=== PATIENT | female | born 1965 | race Caucasian/White ===

== ENCOUNTER → 2017-01-27 | Outpatient (CLI) | payer BC ==
[2017-01-27 13:58] LABS: Anion Gap 12 mmol/L; Blood Urea Nitrogen 11 mg/dL (7-17); Calcium 9.9 mg/dL (8.4-10.2); Carbon Dioxide 21 mmol/L (22-30); Chloride 109 mmol/L (98-107); Glucose 99 mg/dL (74-99); Lithium 1.3 mmol/L; Non-African American GFR(MDRD) >60 (>60 ml/min/1.73 sqM); Potassium 3.7 mmol/L (3.5-5.1); Sodium 142 mmol/L (137-145)
[2017-01-27 14:03] LABS: CH 33.9; CHCM 31.8; HGB 13.1 gm/dL (11.4-16.0); MCH 34.1 pg (25.0-35.0); MCHC 31.9 g/dL (31.0-37.0); Macrocytosis Moderate; Mean Platelet Volume 7.7; RBC 3.83 m/uL (3.80-5.40); RDW 12.1 % (11.5-15.5); WBC 8.3 k/uL (3.8-10.6)
== END ==
LOC: LABWHC1 13:33
PROVIDERS: ATTEND Psychiatry & Neurology Psychiatry
DX: E87.8 Other disorders of electrolyte and fluid balance, not elsewhere classified (principal); F31.60 Bipolar disorder, current episode mixed, unspecified; Z79.890 Hormone replacement therapy
CPT/HCPCS: 36415; 80048; 80178; 85027

== ENCOUNTER → 2017-01-28 | Outpatient (CLI) | payer BC ==
[2017-01-28 16:24] LABS: CH 33.9; CHCM 31.3; HCT 42.7 % (34.0-46.0); HDW 2.33; HGB 13.5 gm/dL (11.4-16.0); MCH 34.3 pg (25.0-35.0); MCHC 31.6 g/dL (31.0-37.0); MCV 108.6 fL (80.0-100.0); Macrocytosis Moderate; Mean Platelet Volume 6.9; RBC 3.93 m/uL (3.80-5.40); RDW 12.1 % (11.5-15.5); WBC 8.3 k/uL (3.8-10.6)
[2017-01-28 16:29] LABS: Anion Gap 9 mmol/L; Blood Urea Nitrogen 8 mg/dL (7-17); Calcium 10.1 mg/dL (8.4-10.2); Carbon Dioxide 21 mmol/L (22-30); Chloride 111 mmol/L (98-107); Glucose 103 mg/dL (74-99); Lithium 0.6 mmol/L; Non-African American GFR(MDRD) >60 (>60 ml/min/1.73 sqM); Potassium 4.7 mmol/L (3.5-5.1); Sodium 141 mmol/L (137-145)
== END | disposition home or self-care (01) ==
LOC: LABWHC1 15:42
PROVIDERS: ATTEND Psychiatry & Neurology Psychiatry
DX: E87.8 Other disorders of electrolyte and fluid balance, not elsewhere classified (principal); F31.60 Bipolar disorder, current episode mixed, unspecified; Z79.84 Long term (current) use of oral hypoglycemic drugs
CPT/HCPCS: 36415; 80048; 80178; 85027

== ENCOUNTER → 2017-02-11 | Outpatient (CLI) | payer BC ==
[2017-02-11 14:40] LABS: CHCM 31.7; HCT 41.5 % (34.0-46.0); HDW 2.14; HGB 13.4 gm/dL (11.4-16.0); MCH 34.8 pg (25.0-35.0); MCHC 32.3 g/dL (31.0-37.0); MCV 107.6 fL (80.0-100.0); Macrocytosis Moderate; Mean Platelet Volume 6.7; RBC 3.86 m/uL (3.80-5.40); RDW 12.1 % (11.5-15.5); WBC 7.9 k/uL (3.8-10.6)
[2017-02-11 14:48] LABS: Lithium 0.8 mmol/L; Potassium 4.3 mmol/L (3.5-5.1)
== END ==
LOC: LABWHC1 13:48
PROVIDERS: ATTEND Psychiatry & Neurology Psychiatry
DX: F31.60 Bipolar disorder, current episode mixed, unspecified (principal); E87.8 Other disorders of electrolyte and fluid balance, not elsewhere classified; Z79.899 Other long term (current) drug therapy
CPT/HCPCS: 36415; 80051; 80178; 85027

== ENCOUNTER → 2017-08-10 | Outpatient (CLI) | payer BC ==
[2017-08-10 12:07] LABS: CH 32.8; CHCM 32.4; HCT 40.4 % (34.0-46.0); HGB 13.7 gm/dL (11.4-16.0); MCH 34.6 pg (25.0-35.0); MCV 101.7 fL (80.0-100.0); Mean Platelet Volume 6.9; RBC 3.97 m/uL (3.80-5.40); RDW 12.5 % (11.5-15.5); WBC 8.7 k/uL (3.8-10.6)
[2017-08-10 12:31] LABS: Anion Gap 11 mmol/L; Blood Urea Nitrogen 10 mg/dL (7-17); Carbon Dioxide 19 mmol/L (22-30); Chloride 107 mmol/L (98-107); Glucose 101 mg/dL (74-99); Lithium 0.9 mmol/L; Non-African American GFR(MDRD) >60 (>60 ml/min/1.73 sqM); Sodium 137 mmol/L (137-145)
== END | disposition home or self-care (01) ==
LOC: LABWHC1 11:33
PROVIDERS: ATTEND Psychiatry & Neurology Psychiatry
DX: F31.60 Bipolar disorder, current episode mixed, unspecified (principal); Z79.899 Other long term (current) drug therapy
CPT/HCPCS: 36415; 80048; 80178; 85027

== ENCOUNTER → 2017-08-12 | Outpatient (CLI) | payer BC ==
[2017-08-12 20:30] LABS: Hemoglobin A1C 4.9 % (4.2-6.1)
== END | disposition home or self-care (01) ==
LOC: LABWHC1 16:19
PROVIDERS: ATTEND Psychiatry & Neurology Psychiatry
DX: D64.9 Anemia, unspecified (principal); Z79.899 Other long term (current) drug therapy
CPT/HCPCS: 36415; 82607; 82746; 83036

== ENCOUNTER → 2017-09-14 | Outpatient (CLI) | payer BC ==
[2017-09-14 15:36] LABS: ALT 46 U/L (9-52); Anion Gap 15 mmol/L; Blood Urea Nitrogen 10 mg/dL (7-17); CH 33.7; Calcium 10.7 mg/dL (8.4-10.2); Carbon Dioxide 21 mmol/L (22-30); Chloride 107 mmol/L (98-107); Glucose 99 mg/dL (74-99); HCT 40.7 % (34.0-46.0); HDW 2.24; HGB 12.7 gm/dL (11.4-16.0); Lithium <0.2 mmol/L; MCH 32.9 pg (25.0-35.0); MCHC 31.2 g/dL (31.0-37.0); MCV 105.6 fL (80.0-100.0); Macrocytosis Slight; Mean Platelet Volume 6.8; Non-African American GFR(MDRD) >60 (>60 ml/min/1.73 sqM); Potassium 4.4 mmol/L (3.5-5.1); RBC 3.85 m/uL (3.80-5.40); RDW 11.9 % (11.5-15.5); Sodium 143 mmol/L (137-145); WBC 9.8 k/uL (3.8-10.6)
== END | disposition home or self-care (01) ==
LOC: LABWHC1 14:45
PROVIDERS: ATTEND Psychiatry & Neurology Psychiatry
DX: F31.60 Bipolar disorder, current episode mixed, unspecified (principal); Z79.899 Other long term (current) drug therapy
CPT/HCPCS: 36415; 80048; 80178; 84460; 85027

== ENCOUNTER 2017-09-30 21:27 | Emergency (ER) | payer BC ==
--- NOTE | 2017-09-30 21:58 | ED ---
General Adult HPI <Shane Vu - Last Filed: 10/01/17 16:08> - General Source: patient, family, EMS, RN notes reviewed, old records reviewed Mode of arrival: EMS Limitations: altered mental status <Winston Castillo - Last Filed: 10/01/17 22:15> - General Chief complaint: Psychiatric Symptoms Stated complaint: Mental Health Time Seen by Provider: 09/30/17 21:31 - History of Present Illness Initial comments: This is a 52-year-old female to the ER for evaluation today. Patient comes in under petition for psychiatric evaluation and treatment. Patient is known history of psychiatric disease, positive had patient petition secondary to danger to family himself. Patient similar to this hospital, coming and agitated and poor historian secondary to agitation (Winston Castillo) - Related Data Home Medications Medication Instructions Recorded Confirmed LORazepam [Ativan] 1 - 2 mg PO HS PRN 09/08/17 09/30/17 Citalopram Hydrobromide [CeleXA] 20 mg PO DAILY 09/30/17 09/30/17 [place] Carbonate 300 mg PO BID 09/30/17 09/30/17 QUEtiapine [SEROquel] 50 mg PO HS 09/30/17 09/30/17 Allergies Allergy/AdvReac Type Severity Reaction Status Date / Time amoxicillin [From Augmentin] Allergy Rash/Hives Verified 09/30/17 21:40 clavulanic acid Allergy Rash/Hives Verified 09/30/17 21:40 [From Augmentin] erythromycin base Allergy Unknown Verified 09/30/17 21:40 moxifloxacin [From Avelox] Allergy Rash/Hives Verified 09/30/17 21:40 Sulfa (Sulfonamide Allergy Rash/Hives Verified 09/30/17 21:40 Antibiotics) doxycycline AdvReac RESPIRATORY Verified 09/30/17 21:40 COMPLICATIONS SULPATRIM Allergy Rash/Hives Uncoded 09/30/17 21:37 Review of Systems ROS Other: All systems not noted in ROS Statement are negative. <HoraceShane - Last Filed: 10/01/17 16:08> ROS Other: All systems not noted in ROS Statement are negative. <Winston Castillo - Last Filed: 10/01/17 22:15> ROS Statement: Those systems with pertinent positive or pertinent negative responses have been documented in the HPI. Past Medical History Past Medical History: GERD/Reflux, GI Bleed, Pneumonia Additional Past Medical History / Comment(s): Insomnia, bronchitis, IBS, gastric ulcers, upper and lower GI bleeds. History of Any Multi-Drug Resistant Organisms: None Reported Past Surgical History: Breast Surgery, Orthopedic Surgery, Tonsillectomy Additional Past Surgical History / Comment(s): EGD x2, laparoscopy for R ovarian cystectomy, L ankle tendon sx, bilateral myringotomy/tubes, bilateral breast implants. Past Anesthesia/Blood Transfusion Reactions: Motion Sickness, Postoperative Nausea & Vomiting (PONV) Past Psychological History: Bipolar, Depression Smoking Status: Current every day smoker Past Alcohol Use History: None Reported Past Drug Use History: None Reported - Past Family History Mother Family Medical History: Musculoskeletal Disorder Additional Family Medical History / Comment(s): Pt states mother has mental health problems and is a sociopath. Father Family Medical History: Cancer Additional Family Medical History / Comment(s): Father from kidney cancer. <Winston Castillo - Last Filed: 10/01/17 22:15> General Exam Limitations: altered mental status General appearance: alert, in no apparent distress, anxious Head exam: Present: atraumatic, normocephalic, normal inspection Eye exam: Present: normal appearance, PERRL, EOMI. Absent: scleral icterus, conjunctival injection, periorbital swelling ENT exam: Present: normal exam, mucous membranes moist Neck exam: Present: normal inspection. Absent: tenderness, meningismus, lymphadenopathy Respiratory exam: Present: normal lung sounds bilaterally. Absent: respiratory distress, wheezes, rales, rhonchi, stridor Cardiovascular Exam: Present: regular rate, normal rhythm, normal heart sounds. Absent: systolic murmur, diastolic murmur, rubs, gallop, clicks GI/Abdominal exam: Present: soft, normal bowel sounds. Absent: distended, tenderness, guarding, rebound, rigid Extremities exam: Present: normal inspection, full ROM, normal capillary refill. Absent: tenderness, pedal edema, joint swelling, calf tenderness Back exam: Present: normal inspection Neurological exam: Present: alert, oriented X3, CN II-XII intact Psychiatric exam: Present: normal affect, normal mood Skin exam: Present: warm, dry, intact, normal color. Absent: rash <Winston Castillo - Last Filed: 10/01/17 22:15> Course <Shane Vu - Last Filed: 10/01/17 16:08> <Winston Castillo - Last Filed: 10/01/17 22:15> Vital Signs 09/30/17 10/01/17 10/01/17 21:36 00:02 06:49 Temperature 97.5 F L 98.0 F 97.6 F Pulse Rate 78 80 72 Respiratory 20 20 18 Rate Blood Pressure 120/78 107/68 163/83 O2 Sat by Pulse 96 99 98 Oximetry 10/01/17 10/01/17 18:13 22:03 Temperature 98.1 F 97.9 F Pulse Rate 75 80 Respiratory 16 16 Rate Blood Pressure 135/66 137/69 O2 Sat by Pulse 99 99 Oximetry - Reevaluation(s) Reevaluation #1: 09/30/17 21:57 Patient is medically clear for psychiatric evaluation (Winston Castillo) Reevaluation #2: 10/01/17 16:08 The patient did require sedation and she was becoming agitated. Placement is still pending at this time. (Shane Vu) Procedures - Restraint - Face to Face Restraint Occurrence 1 Patient's Immediate Situation: Endangers self safety, Endangers others' safety, Endangers staff safety, Violent behavior Patient's Reaction to the Intervention: Uncooperative, Angry, Depressed Patient's Medical & Behavioral Condition: Alert, Agitated, Paranoid, Manic Need to Continue or Terminate Restraint or Seclusion: Continue Face to Face Eval of Restraint Date: 09/30/17 Face to Face Eval of Restraint Time: 23:06 <Winston Castillo - Last Filed: 10/01/17 22:15> Medical Decision Making - Lab Data Result diagrams: 09/30/17 22:38 09/30/17 22:38 <Shane Vu - Last Filed: 10/01/17 16:08> - Lab Data Result diagrams: 09/30/17 22:38 09/30/17 22:38 <Winston Castillo - Last Filed: 10/01/17 22:15> - Medical Decision Making 52 female to ER for evaluation. Patient is ER for evaluation regarding psychiatric disease, patient transferred for inpatient psychiatric evaluation and treatment (Winston Castillo) - Lab Data Lab Results 09/30/17 09/30/17 09/30/17 Range/Units 21:50 21:50 22:38 WBC (3.8-10.6) k/uL RBC (3.80-5.40) m/uL Hgb (11.4-16.0) gm/dL Hct (34.0-46.0) % MCV (80.0-100.0) fL MCH (25.0-35.0) pg MCHC (31.0-37.0) g/dL RDW (11.5-15.5) % Plt Count (150-450) k/uL Neutrophils % % Lymphocytes % % Monocytes % % Eosinophils % % Basophils % % Neutrophils # (1.3-7.7) k/uL Lymphocytes # (1.0-4.8) k/uL Monocytes # (0-1.0) k/uL Eosinophils # (0-0.7) k/uL Basophils # (0-0.2) k/uL Macrocytosis Sodium 138 (137-145) mmol/L Potassium 4.4 (3.5-5.1) mmol/L Chloride 107 (98-107) mmol/L Carbon Dioxide 25 (22-30) mmol/L Anion Gap 6 mmol/L BUN 15 (7-17) mg/dL Creatinine 1.10 H (0.52-1.04) mg/dL Est GFR (MDRD) Af Amer >60 (>60 ml/min/1.73 sqM) Est GFR (MDRD) Non-Af 52 (>60 ml/min/1.73 sqM) Glucose 76 (74-99) mg/dL Calcium 10.5 H (8.4-10.2) mg/dL Urine Color Urine Appearance (Clear) Urine pH (5.0-8.0) Ur Specific [place] (1.001-1.035) Urine Protein (Negative) Urine Glucose (UA) (Negative) Urine Ketones (Negative) Urine Blood (Negative) Urine Nitrite (Negative) Urine Bilirubin (Negative) Urine Urobilinogen (<2.0) mg/dL Ur Leukocyte Esterase (Negative) Urine HCG, Qual Not Detected (Not Detectd) Salicylates <1.0 mg/dL Urine Opiates Screen Not Detected (NotDetected) Ur Oxycodone Screen Not Detected (NotDetected) Urine Methadone Screen Not Detected (NotDetected) Ur Propoxyphene Screen Not Detected (NotDetected) Acetaminophen <10.0 ug/mL Ur Barbiturates Screen Not Detected (NotDetected) U Tricyclic Antidepress Not Detected (NotDetected) Ur Phencyclidine Scrn Not Detected (NotDetected) Ur Amphetamines Screen Not Detected (NotDetected) U Methamphetamines Scrn Not Detected (NotDetected) U Benzodiazepines Scrn Not Detected (NotDetected) [place] 2.0 H* mmol/L Urine Cocaine Screen Not Detected (NotDetected) U Marijuana (THC) Screen Not Detected (NotDetected) Serum Alcohol <10 mg/dL 09/30/17 09/30/17 10/01/17 Range/Units 22:38 22:45 04:00 WBC 12.0 H (3.8-10.6) k/uL RBC 3.85 (3.80-5.40) m/uL Hgb 12.6 (11.4-16.0) gm/dL Hct 40.1 (34.0-46.0) % MCV 104.1 H (80.0-100.0) fL MCH 32.7 (25.0-35.0) pg MCHC 31.4 (31.0-37.0) g/dL RDW 12.9 (11.5-15.5) % Plt Count 287 (150-450) k/uL Neutrophils % 77 % Lymphocytes % 16 % Monocytes % 4 % Eosinophils % 2 % Basophils % 0 % Neutrophils # 9.3 H (1.3-7.7) k/uL Lymphocytes # 2.0 (1.0-4.8) k/uL Monocytes # 0.5 (0-1.0) k/uL Eosinophils # 0.2 (0-0.7) k/uL Basophils # 0.0 (0-0.2) k/uL Macrocytosis Slight Sodium (137-145) mmol/L Potassium (3.5-5.1) mmol/L Chloride (98-107) mmol/L Carbon Dioxide (22-30) mmol/L Anion Gap mmol/L BUN (7-17) mg/dL Creatinine (0.52-1.04) mg/dL Est GFR (MDRD) Af Amer (>60 ml/min/1.73 sqM) Est GFR (MDRD) Non-Af (>60 ml/min/1.73 sqM) Glucose (74-99) mg/dL Calcium (8.4-10.2) mg/dL Urine Color Light Yellow Urine Appearance Clear (Clear) Urine pH 6.5 (5.0-8.0) Ur Specific [place] 1.011 (1.001-1.035) Urine Protein Negative (Negative) Urine Glucose (UA) Negative (Negative) Urine Ketones 2+ H (Negative) Urine Blood Negative (Negative) Urine Nitrite Negative (Negative) Urine Bilirubin Negative (Negative) Urine Urobilinogen <2.0 (<2.0) mg/dL Ur Leukocyte Esterase Negative (Negative) Urine HCG, Qual (Not Detectd) Salicylates mg/dL Urine Opiates Screen (NotDetected) Ur Oxycodone Screen (NotDetected) Urine Methadone Screen (NotDetected) Ur Propoxyphene Screen (NotDetected) Acetaminophen ug/mL Ur Barbiturates Screen (NotDetected) U Tricyclic Antidepress (NotDetected) Ur Phencyclidine Scrn (NotDetected) Ur Amphetamines Screen (NotDetected) U Methamphetamines Scrn (NotDetected) U Benzodiazepines Scrn (NotDetected) [place] 1.6 H* mmol/L Urine Cocaine Screen (NotDetected) U Marijuana (THC) Screen (NotDetected) Serum Alcohol mg/dL 10/01/17 Range/Units 18:34 WBC (3.8-10.6) k/uL RBC (3.80-5.40) m/uL Hgb (11.4-16.0) gm/dL Hct (34.0-46.0) % MCV (80.0-100.0) fL MCH (25.0-35.0) pg MCHC (31.0-37.0) g/dL RDW (11.5-15.5) % Plt Count (150-450) k/uL Neutrophils % % Lymphocytes % % Monocytes % % Eosinophils % % Basophils % % Neutrophils # (1.3-7.7) k/uL Lymphocytes # (1.0-4.8) k/uL Monocytes # (0-1.0) k/uL Eosinophils # (0-0.7) k/uL Basophils # (0-0.2) k/uL Macrocytosis Sodium (137-145) mmol/L Potassium (3.5-5.1) mmol/L Chloride (98-107) mmol/L Carbon Dioxide (22-30) mmol/L Anion Gap mmol/L BUN (7-17) mg/dL Creatinine (0.52-1.04) mg/dL Est GFR (MDRD) Af Amer (>60 ml/min/1.73 sqM) Est GFR (MDRD) Non-Af (>60 ml/min/1.73 sqM) Glucose (74-99) mg/dL Calcium (8.4-10.2) mg/dL Urine Color Urine Appearance (Clear) Urine pH (5.0-8.0) Ur Specific [place] (1.001-1.035) Urine Protein (Negative) Urine Glucose (UA) (Negative) Urine Ketones (Negative) Urine Blood (Negative) Urine Nitrite (Negative) Urine Bilirubin (Negative) Urine Urobilinogen (<2.0) mg/dL Ur Leukocyte Esterase (Negative) Urine HCG, Qual (Not Detectd) Salicylates mg/dL Urine Opiates Screen (NotDetected) Ur Oxycodone Screen (NotDetected) Urine Methadone Screen (NotDetected) Ur Propoxyphene Screen (NotDetected) Acetaminophen ug/mL Ur Barbiturates Screen (NotDetected) U Tricyclic Antidepress (NotDetected) Ur Phencyclidine Scrn (NotDetected) Ur Amphetamines Screen (NotDetected) U Methamphetamines Scrn (NotDetected) U Benzodiazepines Scrn (NotDetected) [place] 1.2 mmol/L Urine Cocaine Screen (NotDetected) U Marijuana (THC) Screen (NotDetected) Serum Alcohol mg/dL Disposition <Shane Vu - Last Filed: 10/01/17 16:08> <Winston Castillo - Last Filed: 10/01/17 22:15> Clinical Impression: [place] toxicity, Mood disorder, Depression, Suicidal ideation, Psychosis Disposition: TRANSFER TO PSYCH HOSP/UNIT Condition: Fair Referrals: None,Stated [Primary Care Provider] - 1-2 days
[2017-09-30] MEDS ORDERED: ACETAMINOPHEN TAB 325 MG TAB PO STA (22:20)
[2017-09-30] MEDS ORDERED: ZIPRASIDONE 20 MG VIAL IM STA (22:45)
[2017-09-30 22:48] LABS: Appearance,Urine Clear (Clear); Bilirubin,Urine Negative (Negative); Glucose,Urine (UA) Negative (Negative); Ketones,Urine 2+ (Negative); Leukocyte Esterase,Urine Negative (Negative); Nitrite,Urine Negative (Negative); PH, Urine 6.5 (5.0-8.0); Protein,Urine Negative (Negative); Specific Gravity,Urine 1.011 (1.001-1.035); UA Billing (MACRO vs. MICRO) CHEM; Urobilinogen,Urine <2.0 mg/dL (<2.0)
[2017-09-30 23:06] LABS: Basophils % (A) 0 %; CH 32.4; CHCM 31.2; Eosinophils # (A) 0.2 k/uL (0-0.7); Eosinophils % (A) 2 %; HCT 40.1 % (34.0-46.0); HDW 2.11; HGB 12.6 gm/dL (11.4-16.0); Luc # (Auto) 0.11; Luc % (Auto) 1; Lymphocytes % (A) 16 %; MCH 32.7 pg (25.0-35.0); MCHC 31.4 g/dL (31.0-37.0); MCV 104.1 fL (80.0-100.0); Macrocytosis Slight; Mean Platelet Volume 7.7; Monocytes # (A) 0.5 k/uL (0-1.0); Monocytes % (A) 4 %; Neutrophils # (A) 9.3 k/uL (1.3-7.7); Neutrophils % (A) 77 %; RBC 3.85 m/uL (3.80-5.40); RDW 12.9 % (11.5-15.5); WBC (Perox) 12.42
[2017-09-30 23:08] LABS: Acetaminophen <10.0 ug/mL; Alcohol <10 mg/dL; Anion Gap 6 mmol/L; Blood Urea Nitrogen 15 mg/dL (7-17); Calcium 10.5 mg/dL (8.4-10.2); Carbon Dioxide 25 mmol/L (22-30); Chloride 107 mmol/L (98-107); Glucose 76 mg/dL (74-99); Non-African American GFR(MDRD) 52 (>60 ml/min/1.73 sqM); Potassium 4.4 mmol/L (3.5-5.1); Salicylate <1.0 mg/dL; Sodium 138 mmol/L (137-145)
[2017-10-01] MEDS ORDERED: ACETAMINOPHEN TAB 325 MG TAB PO STA ×2 (09:10→14:24)
[2017-10-01] MEDS ORDERED: NICOTINE POLACRILEX 2 MG GUM BUCCAL PRN (14:22)
[2017-10-01] MEDS ORDERED: ZIPRASIDONE 20 MG VIAL IM STA (14:24)
[2017-10-01 18:14] VITALS: RESP 16
[2017-10-01 22:05] VITALS: BP 137/69; PULSE 80; TEMP 97.9
== END 2017-10-01 22:06 ==
LOC: EC 21:27
DX: T43.591A Poisoning by other antipsychotics and neuroleptics, accidental (unintentional), initial encounter (principal); F29 Unspecified psychosis not due to a substance or known physiological condition; F31.9 Bipolar disorder, unspecified; K21.9 Gastro-esophageal reflux disease without esophagitis; K58.9 Irritable bowel syndrome, unspecified; F17.200 Nicotine dependence, unspecified, uncomplicated; Z79.899 Other long term (current) drug therapy; Z88.0 Allergy status to penicillin; Z88.1 Allergy status to other antibiotic agents; Z88.2 Allergy status to sulfonamides
CPT/HCPCS: 82075; 36415 ×2; 80048; 80178 ×2; 85025; 81003; 81025; 80306; 83520 ×2; 80320; 99285; 96372 ×2; J3486 ×2

== ENCOUNTER → 2018-04-08 | Outpatient (CLI) | payer BC ==
[2018-04-08 15:15] LABS: Basophils % (A) 0 %; Eosinophils # (A) 0.5 k/uL (0-0.7); Eosinophils % (A) 4 %; HCT 45.8 % (34.0-46.0); HGB 14.7 gm/dL (11.4-16.0); Lymphocytes # (A) 3.5 k/uL (1.0-4.8); Lymphocytes % (A) 31 %; MCHC 32.2 g/dL (31.0-37.0); MCV 102.6 fL (80.0-100.0); Macrocytosis Slight; Mean Platelet Volume 6.4; Monocytes # (A) 0.4 k/uL (0-1.0); Monocytes % (A) 4 %; Neutrophils # (A) 6.5 k/uL (1.3-7.7); Neutrophils % (A) 59 %; Platelet Count 398 k/uL (150-450); RBC 4.47 m/uL (3.80-5.40); RDW 12.8 % (11.5-15.5); WBC 11.1 k/uL (3.8-10.6)
[2018-04-08 15:36] LABS: Anion Gap 13 mmol/L; Blood Urea Nitrogen 12 mg/dL (7-17); Carbon Dioxide 23 mmol/L (22-30); Chloride 104 mmol/L (98-107); Potassium 4.2 mmol/L (3.5-5.1); Sodium 140 mmol/L (137-145)
[2018-04-08 16:09] LABS: Lithium 0.9 mmol/L
== END | disposition home or self-care (01) ==
LOC: LABWHC1 14:48
DX: Z51.81 Encounter for therapeutic drug level monitoring (principal); Z79.899 Other long term (current) drug therapy
CPT/HCPCS: 36415; 80051; 80178; 82565; 84443; 84520; 85025

== ENCOUNTER 2019-04-01 11:12 | Emergency (ER) | payer BC, OTHER ==
[2019-04-01 11:20] VITALS: RESP 18; TEMP 98.4
[2019-04-01] MEDS ORDERED: SODIUM CHLORIDE 0.9% 500 ML 500 ML IV STA (12:02)
--- NOTE | 2019-04-01 12:05 | ED ---
General Adult HPI - General Chief complaint: Recheck/Abnormal Lab/Rx Stated complaint: fatigue/shaky Time Seen by Provider: 04/01/19 11:15 Source: patient, RN notes reviewed Mode of arrival: ambulatory Limitations: no limitations - History of Present Illness Initial comments: This is a 54-year-old female who presents to the ER complaining of generalized tooth 6 days. Patient states she is very tired she has a frontal headache she mildly nauseated and just feels that she has lack of energy. Patient denies any fever or chills. Patient denies a cough. Patient denies abdominal pain patient says nausea vomiting but does states she has had diarrhea over that period time. Patient does take lithium and thinks maybe it's from her having a high lithium level. Patient denies any leg swelling or calf tenderness. Patient denies any chest pain or difficulty breathing or shortness of breath. - Related Data Home Medications Medication Instructions Recorded Confirmed LORazepam [Ativan] 1 - 2 mg PO HS PRN 09/08/17 09/30/17 Citalopram Hydrobromide [CeleXA] 20 mg PO DAILY 09/30/17 09/30/17 [place] Carbonate 300 mg PO BID 09/30/17 09/30/17 QUEtiapine [SEROquel] 50 mg PO HS 09/30/17 09/30/17 Allergies Allergy/AdvReac Type Severity Reaction Status Date / Time amoxicillin [From Augmentin] Allergy Rash/Hives Verified 09/30/17 21:40 clavulanic acid Allergy Rash/Hives Verified 09/30/17 21:40 [From Augmentin] erythromycin base Allergy Unknown Verified 09/30/17 21:40 moxifloxacin [From Avelox] Allergy Rash/Hives Verified 09/30/17 21:40 Sulfa (Sulfonamide Allergy Rash/Hives Verified 09/30/17 21:40 Antibiotics) doxycycline AdvReac RESPIRATORY Verified 09/30/17 21:40 COMPLICATIONS SULPATRIM Allergy Rash/Hives Uncoded 09/30/17 21:37 Review of Systems ROS Statement: Those systems with pertinent positive or pertinent negative responses have been documented in the HPI. ROS Other: All systems not noted in ROS Statement are negative. Past Medical History Past Medical History: GERD/Reflux, GI Bleed, Pneumonia Additional Past Medical History / Comment(s): Insomnia, bronchitis, IBS, gastric ulcers, upper and lower GI bleeds. History of Any Multi-Drug Resistant Organisms: None Reported Past Surgical History: Breast Surgery, Ear Surgery, Orthopedic Surgery, Tonsillectomy Additional Past Surgical History / Comment(s): EGD x2, laparoscopy for R ovarian cystectomy, L ankle tendon sx, bilateral myringotomy/tubes, bilateral breast implants. Past Anesthesia/Blood Transfusion Reactions: Motion Sickness, Postoperative Nausea & Vomiting (PONV) Past Psychological History: Bipolar, Depression Smoking Status: Current every day smoker Past Alcohol Use History: None Reported Past Drug Use History: None Reported - Past Family History Mother Family Medical History: Musculoskeletal Disorder Additional Family Medical History / Comment(s): Pt states mother has mental health problems and is a sociopath. Father Family Medical History: Cancer Additional Family Medical History / Comment(s): Father from kidney cancer. General Exam - General Exam Comments Initial Comments: GENERAL: Patient is well-developed and well-nourished. Patient is nontoxic and well- hydrated and is in mild distress. ENT: Neck is soft and supple. No significant lymphadenopathy is noted. Oropharynx is clear. Moist mucous membranes. Neck has full range of motion without eliciting any pain. EYES: The sclera were anicteric and conjunctiva were pink and moist. Extraocular movements were intact and pupils were equal round and reactive to light. Eyelids were unremarkable. PULMONARY: Unlabored respirations. Good breath sounds bilaterally. No audible rales rhonchi or wheezing was noted. CARDIOVASCULAR: There is a regular rate and rhythm without any murmurs gallops or rubs. ABDOMEN: Soft and nontender with normal bowel sounds. SKIN: Skin is clear with no lesions or rashes and otherwise unremarkable. NEUROLOGIC: Patient is alert and oriented x3. Cranial nerves II through XII are grossly intact. Motor and sensory are also intact. Normal speech, volume and content. Symmetrical smile. MUSCULOSKELETAL: Normal extremities with adequate strength and full range of motion. No lower extremity swelling or edema. No calf tenderness. LYMPHATICS: No significant lymphadenopathy is noted PSYCHIATRIC: Normal psychiatric evaluation. Limitations: no limitations Course Vital Signs 04/01/19 11:15 Temperature 98.4 F Pulse Rate 57 L Respiratory 18 Rate Blood Pressure 137/74 O2 Sat by Pulse 100 Oximetry Medical Decision Making - Medical Decision Making EKG shows a marked sinus bradycardia at 45 bpm [place] interval 202 QRS is 98 QT interval 480 QTC is 4:15. I will back and reevaluate the patient she was in no distress. I told the patient her lithium level was 1.1 she stated that was much too high for anytime he gets above 0.8 she does have symptoms similar to symptoms she has today. Patient states she'll follow-up with her primary medical care doctor to have a repeat level drawn Wednesday and she will not take any lithium today and tomorrow. - Lab Data Result diagrams: 04/01/19 12:30 04/01/19 12:30 Lab Results 04/01/19 04/01/19 04/01/19 Range/Units 12:30 12:30 12:30 WBC 7.2 (3.8-10.6) k/uL RBC 4.30 (3.80-5.40) m/uL Hgb 14.0 (11.4-16.0) gm/dL Hct 43.5 (34.0-46.0) % MCV 101.1 H (80.0-100.0) fL MCH 32.7 (25.0-35.0) pg MCHC 32.3 (31.0-37.0) g/dL RDW 11.7 (11.5-15.5) % Plt Count 278 (150-450) k/uL Neutrophils % 58 % Lymphocytes % 29 % Monocytes % 4 % Eosinophils % 7 % Basophils % 0 % Neutrophils # 4.2 (1.3-7.7) k/uL Lymphocytes # 2.0 (1.0-4.8) k/uL Monocytes # 0.3 (0-1.0) k/uL Eosinophils # 0.5 (0-0.7) k/uL Basophils # 0.0 (0-0.2) k/uL PT 9.9 (9.0-12.0) sec INR 0.9 (<1.2) APTT 22.6 (22.0-30.0) sec Sodium 139 (137-145) mmol/L Potassium 4.0 (3.5-5.1) mmol/L Chloride 107 (98-107) mmol/L Carbon Dioxide 24 (22-30) mmol/L Anion Gap 8 mmol/L BUN 13 (7-17) mg/dL Creatinine 0.89 (0.52-1.04) mg/dL Est GFR (CKD-EPI)AfAm 86 (>60 ml/min/1.73 sqM) Est GFR (CKD-EPI)NonAf 74 (>60 ml/min/1.73 sqM) Glucose 92 (74-99) mg/dL Plasma Lactic Acid Sven (0.7-2.0) mmol/L Calcium 10.1 (8.4-10.2) mg/dL Magnesium 2.0 (1.6-2.3) mg/dL Total Bilirubin 0.6 (0.2-1.3) mg/dL AST 25 (14-36) U/L ALT 28 (9-52) U/L Alkaline Phosphatase 62 (38-126) U/L Troponin I (0.000-0.034) ng/mL Total Protein 7.4 (6.3-8.2) g/dL Albumin 4.7 (3.5-5.0) g/dL TSH 2.010 (0.465-4.680) mIU/L Free T4 0.77 L (0.78-2.19) ng/dL Urine Color Urine Appearance (Clear) Urine pH (5.0-8.0) Ur Specific [place] (1.001-1.035) Urine Protein (Negative) Urine Glucose (UA) (Negative) Urine Ketones (Negative) Urine Blood (Negative) Urine Nitrite (Negative) Urine Bilirubin (Negative) Urine Urobilinogen (<2.0) mg/dL Ur Leukocyte Esterase (Negative) [place] 1.1 mmol/L 04/01/19 04/01/19 04/01/19 Range/Units 12:30 12:30 12:50 WBC (3.8-10.6) k/uL RBC (3.80-5.40) m/uL Hgb (11.4-16.0) gm/dL Hct (34.0-46.0) % MCV (80.0-100.0) fL MCH (25.0-35.0) pg MCHC (31.0-37.0) g/dL RDW (11.5-15.5) % Plt Count (150-450) k/uL Neutrophils % % Lymphocytes % % Monocytes % % Eosinophils % % Basophils % % Neutrophils # (1.3-7.7) k/uL Lymphocytes # (1.0-4.8) k/uL Monocytes # (0-1.0) k/uL Eosinophils # (0-0.7) k/uL Basophils # (0-0.2) k/uL PT (9.0-12.0) sec INR (<1.2) APTT (22.0-30.0) sec Sodium (137-145) mmol/L Potassium (3.5-5.1) mmol/L Chloride (98-107) mmol/L Carbon Dioxide (22-30) mmol/L Anion Gap mmol/L BUN (7-17) mg/dL Creatinine (0.52-1.04) mg/dL Est GFR (CKD-EPI)AfAm (>60 ml/min/1.73 sqM) Est GFR (CKD-EPI)NonAf (>60 ml/min/1.73 sqM) Glucose (74-99) mg/dL Plasma Lactic Acid Sven 1.0 (0.7-2.0) mmol/L Calcium (8.4-10.2) mg/dL Magnesium (1.6-2.3) mg/dL Total Bilirubin (0.2-1.3) mg/dL AST (14-36) U/L ALT (9-52) U/L Alkaline Phosphatase (38-126) U/L Troponin I <0.012 (0.000-0.034) ng/mL Total Protein (6.3-8.2) g/dL Albumin (3.5-5.0) g/dL TSH (0.465-4.680) mIU/L Free T4 (0.78-2.19) ng/dL Urine Color Colorless Urine Appearance Clear (Clear) Urine pH 6.5 (5.0-8.0) Ur Specific [place] 1.003 (1.001-1.035) Urine Protein Negative (Negative) Urine Glucose (UA) Negative (Negative) Urine Ketones Negative (Negative) Urine Blood Negative (Negative) Urine Nitrite Negative (Negative) Urine Bilirubin Negative (Negative) Urine Urobilinogen <2.0 (<2.0) mg/dL Ur Leukocyte Esterase Negative (Negative) [place] mmol/L Disposition Clinical Impression: Diarrhea, Weakness, Shaky Disposition: HOME SELF-CARE Condition: Good Instructions (If sedation given, give patient instructions): [place] Toxicity (ED), Acute Diarrhea (ED) Is patient prescribed a controlled substance at d/c from ED?: No Referrals: Arnaud Hernandez MD [Primary Care Provider] - 1-2 days Time of Disposition: 13:37
[2019-04-01] MEDS ORDERED: ASPIRIN-ACET-CAFF 250-250-65MG 1 EACH TAB PO STA (12:19)
[2019-04-01 12:43] LABS: Basophils % (A) 0 %; Eosinophils # (A) 0.5 k/uL (0-0.7); Eosinophils % (A) 7 %; HCT 43.5 % (34.0-46.0); Lymphocytes % (A) 29 %; MCH 32.7 pg (25.0-35.0); MCHC 32.3 g/dL (31.0-37.0); MCV 101.1 fL (80.0-100.0); Mean Platelet Volume 6.9; Monocytes # (A) 0.3 k/uL (0-1.0); Monocytes % (A) 4 %; Neutrophils # (A) 4.2 k/uL (1.3-7.7); Neutrophils % (A) 58 %; Platelet Count 278 k/uL (150-450); RDW 11.7 % (11.5-15.5); WBC 7.2 k/uL (3.8-10.6)
[2019-04-01 12:46] LABS: Appearance,Urine Clear (Clear); Bilirubin,Urine Negative (Negative); Blood,Urine Negative (Negative); Color,Urine Colorless; Glucose,Urine (UA) Negative (Negative); Ketones,Urine Negative (Negative); Leukocyte Esterase,Urine Negative (Negative); Nitrite,Urine Negative (Negative); PH, Urine 6.5 (5.0-8.0); Protein,Urine Negative (Negative); Specific Gravity,Urine 1.003 (1.001-1.035); Urobilinogen,Urine <2.0 mg/dL (<2.0)
[2019-04-01 12:53] LABS: Albumin 4.7 g/dL (3.5-5.0); Calcium 10.1 mg/dL (8.4-10.2); Lithium 1.1 mmol/L; Total Bilirubin 0.6 mg/dL (0.2-1.3); Total Protein 7.4 g/dL (6.3-8.2)
[2019-04-01 12:56] LABS: INR 0.9 (<1.2); Partial Thromboplastin Time 22.6 sec (22.0-30.0); Prothrombin Time 9.9 sec (9.0-12.0)
[2019-04-01 13:10] LABS: T4, Free (Free Thyroxine) 0.77 ng/dL (0.78-2.19)
--- NOTE | 2019-04-01 13:13 | XR ---
EXAMINATION TYPE: XR chest 2V DATE OF EXAM: 04/01/2019 HISTORY: Weakness. REFERENCE: NONE. FINDINGS: The lungs are clear. Pleural space are clear. The heart is not enlarged. IMPRESSION: NO ACUTE INTRATHORACIC ABNORMALITY.
[2019-04-01 14:18] VITALS: BP 124/70; PULSE 49
== END 2019-04-01 14:18 | disposition home or self-care (01) ==
LOC: EC 11:12
DX: R53.1 Weakness (principal); R25.1 Tremor, unspecified; R19.7 Diarrhea, unspecified; R00.1 Bradycardia, unspecified; F31.9 Bipolar disorder, unspecified; F17.200 Nicotine dependence, unspecified, uncomplicated; Z79.899 Other long term (current) drug therapy; Z88.0 Allergy status to penicillin; Z88.1 Allergy status to other antibiotic agents; Z88.2 Allergy status to sulfonamides
CPT/HCPCS: 36415; 71046; 80053; 80178; 81003; 83605; 83735; 84439; 84443; 84484; 85025; 85610; 85730; 93005; 96360; 96361; 99284

== ENCOUNTER → 2019-04-19 | Outpatient (CLI) | payer BC, OTHER ==
[2019-04-20 00:45] LABS: Anion Gap 9.4 mmol/L (4.00-12.00); Carbon Dioxide 22.6 mmol/L (21.6-31.8); Lithium 0.6 mmol/L (1.0-1.2)
== END | disposition home or self-care (01) ==
LOC: LABWHC1 16:19
DX: F31.2 Bipolar disorder, current episode manic severe with psychotic features (principal); Z79.899 Other long term (current) drug therapy
CPT/HCPCS: 36415; 80051; 80178; 82565; 84520

== ENCOUNTER 2019-08-24 15:22 | Emergency (ER) | payer BC, OTHER ==
[2019-08-24 16:10] LABS: Basophils % (A) 1 %; Eosinophils # (A) 0.4 k/uL (0-0.7); Eosinophils % (A) 5 %; HCT 40.6 % (34.0-46.0); Lymphocytes # (A) 2.8 k/uL (1.0-4.8); Lymphocytes % (A) 37 %; MCH 33.6 pg (25.0-35.0); Macrocytosis Slight; Mean Platelet Volume 6.7; Monocytes # (A) 0.3 k/uL (0-1.0); Monocytes % (A) 4 %; Neutrophils # (A) 3.9 k/uL (1.3-7.7); Neutrophils % (A) 51 %; Platelet Count 271 k/uL (150-450); RBC 3.87 m/uL (3.80-5.40); RDW 11.9 % (11.5-15.5); WBC 7.6 k/uL (3.8-10.6)
[2019-08-24 16:17] LABS: INR 0.9 (<1.2)
[2019-08-24 16:18] LABS: Lactic Acid, Venous 1.2 mmol/L (0.7-2.0); Prothrombin Time 9.7 sec (9.0-12.0)
[2019-08-24 16:19] LABS: ALT 28 U/L (9-52); AST 28 U/L (14-36); African American GFR (CKD) >90 (>60 ml/min/1.73 sqM); Albumin 4.4 g/dL (3.5-5.0); Alkaline Phosphatase 50 U/L (38-126); Anion Gap 9 mmol/L; Blood Urea Nitrogen 10 mg/dL (7-17); Calcium 9.9 mg/dL (8.4-10.2); Carbon Dioxide 23 mmol/L (22-30); Chloride 108 mmol/L (98-107); Glucose 86 mg/dL (74-99); Lithium 0.8 mmol/L; Potassium 3.9 mmol/L (3.5-5.1); Sodium 140 mmol/L (137-145); Total Bilirubin 0.3 mg/dL (0.2-1.3); Total Protein 7.1 g/dL (6.3-8.2)
--- NOTE | 2019-08-24 17:23 | ED ---
General Adult HPI - General Chief complaint: Recheck/Abnormal Lab/Rx Stated complaint: Not sleeping Time Seen by Provider: 08/24/19 15:30 Source: patient Mode of arrival: ambulatory Limitations: no limitations - History of Present Illness Initial comments: The patient is a 54-year-old female presents emergency department requesting a within level rechecked. The patient reports to a history of bipolar. States that she will frequently feel manic and occasionally this is due to her lithium level being elevated. Her psychiatrist is only check her labs twice. States she had to be hospitalized once before for elevated lithium levels. She reports to nausea and chronic diarrhea. States it is black in color. This is also chronic for her and has been previously scoped. Demonstrated that she had ulcer disease. She denies any hematochezia or constipation. No alcohol or NSAID use. Denies any recent changes in her medication. Denies any suicidal, homicidal ideations or hallucinations. The chest pain or shortness of breath. No recent infections. Denies cough, abdominal pain or changes in her bowel or bladder habits. There are no alleviating, precipitating or modifying factors - Related Data Home Medications Medication Instructions Recorded Confirmed Acetaminophen [Tylenol Extra 2,000 mg PO DAILY PRN 08/24/19 08/24/19 Strength] [place] Carbonate [[place] 900 mg PO HS 08/24/19 08/24/19 Carbonate ER] Ramelteon [Rozerem] 8 mg PO HS 08/24/19 08/24/19 traZODone HCL 100 - 200 mg PO HS 08/24/19 08/24/19 Allergies Allergy/AdvReac Type Severity Reaction Status Date / Time amoxicillin [From Augmentin] Allergy Rash/Hives Verified 08/24/19 16:16 clavulanic acid Allergy Rash/Hives Verified 08/24/19 16:16 [From Augmentin] erythromycin base Allergy Unknown Verified 08/24/19 16:16 moxifloxacin [From Avelox] Allergy Rash/Hives Verified 08/24/19 16:16 Sulfa (Sulfonamide Allergy Rash/Hives Verified 08/24/19 16:16 Antibiotics) doxycycline AdvReac RESPIRATORY Verified 08/24/19 16:16 COMPLICATIONS SULPATRIM Allergy Rash/Hives Uncoded 08/24/19 16:16 Review of Systems ROS Statement: Those systems with pertinent positive or pertinent negative responses have been documented in the HPI. ROS Other: All systems not noted in ROS Statement are negative. Past Medical History Past Medical History: GERD/Reflux, GI Bleed, Pneumonia Additional Past Medical History / Comment(s): Insomnia, bronchitis, IBS, gastric ulcers, upper and lower GI bleeds. History of Any Multi-Drug Resistant Organisms: None Reported Past Surgical History: Breast Surgery, Ear Surgery, Orthopedic Surgery, Tonsillectomy Additional Past Surgical History / Comment(s): EGD x2, laparoscopy for R ovarian cystectomy, L ankle tendon sx, bilateral myringotomy/tubes, bilateral breast implants. Past Anesthesia/Blood Transfusion Reactions: Motion Sickness, Postoperative Nausea & Vomiting (PONV) Past Psychological History: Bipolar, Depression Smoking Status: Current every day smoker Past Alcohol Use History: None Reported Past Drug Use History: None Reported - Past Family History Mother Family Medical History: Musculoskeletal Disorder Additional Family Medical History / Comment(s): Pt states mother has mental health problems and is a sociopath. Father Family Medical History: Cancer Additional Family Medical History / Comment(s): Father from kidney cancer. General Exam Limitations: no limitations General appearance: alert, in no apparent distress Head exam: Present: atraumatic, normocephalic, normal inspection Eye exam: Present: normal appearance, PERRL, EOMI. Absent: scleral icterus, conjunctival injection, periorbital swelling ENT exam: Present: normal exam, mucous membranes moist Neck exam: Present: normal inspection. Absent: tenderness, meningismus, lymphadenopathy Respiratory exam: Present: normal lung sounds bilaterally. Absent: respiratory distress, wheezes, rales, rhonchi, stridor Cardiovascular Exam: Present: regular rate, normal rhythm, normal heart sounds. Absent: systolic murmur, diastolic murmur, rubs, gallop, clicks GI/Abdominal exam: Present: soft, normal bowel sounds. Absent: distended, tenderness, guarding, rebound, rigid Extremities exam: Present: normal inspection, full ROM, normal capillary refill. Absent: tenderness, pedal edema, joint swelling, calf tenderness Back exam: Present: normal inspection Neurological exam: Present: alert, oriented X3, CN II-XII intact Psychiatric exam: Present: normal affect, normal mood Skin exam: Present: warm, dry, intact, normal color. Absent: rash Course Vital Signs 08/24/19 08/24/19 15:27 17:31 Temperature 98.8 F 98.2 F Pulse Rate 75 81 Respiratory 20 16 Rate Blood Pressure 130/67 129/77 O2 Sat by Pulse 97 98 Oximetry Medical Decision Making - Medical Decision Making Upon arrival the patient was placed into room 29. A thorough history of physical exam was performed. I did perform a rectal exam is a patient is reporting dark stools. Fecal cultures come back negative. Recommend laboratory studies. MCV is 105, chloride 108. Fecal occult is negative. [place] level 0.8. I discussed these results with the patient. I did discuss further evaluation for the patient's symptoms however she refuses. She states that she was only concerned about an elevated lithium level. The patient will be d ischarged home at this time. I did inform her that she should follow up with the GI doctor for her chronic diarrhea. I did provide her with information for Dr. Colunga's office. The patient is a new or worsening symptoms she should return to the department. The patient was then discharged home in stable condition. - Lab Data Result diagrams: 08/24/19 15:45 08/24/19 15:45 Lab Results 08/24/19 08/24/19 08/24/19 Range/Units 15:45 15:45 15:45 WBC 7.6 (3.8-10.6) k/uL RBC 3.87 (3.80-5.40) m/uL Hgb 13.0 (11.4-16.0) gm/dL Hct 40.6 (34.0-46.0) % MCV 105.0 H (80.0-100.0) fL MCH 33.6 (25.0-35.0) pg MCHC 32.0 (31.0-37.0) g/dL RDW 11.9 (11.5-15.5) % Plt Count 271 (150-450) k/uL Neutrophils % 51 % Lymphocytes % 37 % Monocytes % 4 % Eosinophils % 5 % Basophils % 1 % Neutrophils # 3.9 (1.3-7.7) k/uL Lymphocytes # 2.8 (1.0-4.8) k/uL Monocytes # 0.3 (0-1.0) k/uL Eosinophils # 0.4 (0-0.7) k/uL Basophils # 0.0 (0-0.2) k/uL Macrocytosis Slight PT 9.7 (9.0-12.0) sec INR 0.9 (<1.2) APTT 23.0 (22.0-30.0) sec Sodium 140 (137-145) mmol/L Potassium 3.9 (3.5-5.1) mmol/L Chloride 108 H (98-107) mmol/L Carbon Dioxide 23 (22-30) mmol/L Anion Gap 9 mmol/L BUN 10 (7-17) mg/dL Creatinine 0.76 (0.52-1.04) mg/dL Est GFR (CKD-EPI)AfAm >90 (>60 ml/min/1.73 sqM) Est GFR (CKD-EPI)NonAf >90 (>60 ml/min/1.73 sqM) Glucose 86 (74-99) mg/dL Plasma Lactic Acid Sven (0.7-2.0) mmol/L Calcium 9.9 (8.4-10.2) mg/dL Total Bilirubin 0.3 (0.2-1.3) mg/dL AST 28 (14-36) U/L ALT 28 (9-52) U/L Alkaline Phosphatase 50 (38-126) U/L Ammonia (<30) umol/L Total Protein 7.1 (6.3-8.2) g/dL Albumin 4.4 (3.5-5.0) g/dL TSH 1.910 (0.465-4.680) mIU/L Stool Occult Blood (Negative) [place] 0.8 mmol/L 08/24/19 08/24/19 Range/Units 15:45 15:45 WBC (3.8-10.6) k/uL RBC (3.80-5.40) m/uL Hgb (11.4-16.0) gm/dL Hct (34.0-46.0) % MCV (80.0-100.0) fL MCH (25.0-35.0) pg MCHC (31.0-37.0) g/dL RDW (11.5-15.5) % Plt Count (150-450) k/uL Neutrophils % % Lymphocytes % % Monocytes % % Eosinophils % % Basophils % % Neutrophils # (1.3-7.7) k/uL Lymphocytes # (1.0-4.8) k/uL Monocytes # (0-1.0) k/uL Eosinophils # (0-0.7) k/uL Basophils # (0-0.2) k/uL Macrocytosis PT (9.0-12.0) sec INR (<1.2) APTT (22.0-30.0) sec Sodium (137-145) mmol/L Potassium (3.5-5.1) mmol/L Chloride (98-107) mmol/L Carbon Dioxide (22-30) mmol/L Anion Gap mmol/L BUN (7-17) mg/dL Creatinine (0.52-1.04) mg/dL Est GFR (CKD-EPI)AfAm (>60 ml/min/1.73 sqM) Est GFR (CKD-EPI)NonAf (>60 ml/min/1.73 sqM) Glucose (74-99) mg/dL Plasma Lactic Acid Sven 1.2 (0.7-2.0) mmol/L Calcium (8.4-10.2) mg/dL Total Bilirubin (0.2-1.3) mg/dL AST (14-36) U/L ALT (9-52) U/L Alkaline Phosphatase (38-126) U/L Ammonia 18 (<30) umol/L Total Protein (6.3-8.2) g/dL Albumin (3.5-5.0) g/dL TSH (0.465-4.680) mIU/L Stool Occult Blood Negative (Negative) [place] mmol/L Disposition Clinical Impression: [place] use, Nausea, Chronic diarrhea Disposition: HOME SELF-CARE Condition: Stable Instructions (If sedation given, give patient instructions): Chronic Diarrhea (ED) Additional Instructions: Please follow-up with your primary care doctor for reevaluation. I do recommend you see Dr. Colunga for your chronic diarrhea. Return to the emergency room for any new or worsening symptoms Is patient prescribed a controlled substance at d/c from ED?: No Referrals: Arnaud Hernandez MD [Primary Care Provider] - 1-2 days Heriberto Colunga MD [STAFF PHYSICIAN] - 1-2 days Time of Disposition: 17:23
[2019-08-24 17:32] VITALS: BP 129/77; PULSE 81; RESP 16; TEMP 98.2
== END 2019-08-24 17:31 | disposition home or self-care (01) ==
LOC: EC 15:22
DX: F19.90 Other psychoactive substance use, unspecified, uncomplicated (principal); K52.9 Noninfective gastroenteritis and colitis, unspecified; G47.00 Insomnia, unspecified; F31.9 Bipolar disorder, unspecified; F17.200 Nicotine dependence, unspecified, uncomplicated; Z88.0 Allergy status to penicillin; Z88.1 Allergy status to other antibiotic agents; Z88.2 Allergy status to sulfonamides; Z79.899 Other long term (current) drug therapy; Z87.19 Personal history of other diseases of the digestive system; Z81.8 Family history of other mental and behavioral disorders
CPT/HCPCS: 36415; 80053; 80178; 82140; 82272; 83605; 84443; 85025; 85610; 85730; 99284

== ENCOUNTER 2019-08-26 09:51 | Emergency (ER) | payer BC, OTHER ==
[2019-08-26 09:56] VITALS: BP 142/70; PULSE 65; RESP 18; TEMP 98.2
--- NOTE | 2019-08-26 10:24 | ED ---
General Adult HPI - General Chief complaint: Psychiatric Symptoms Stated complaint: EPS eval Time Seen by Provider: 08/26/19 09:51 Source: patient, RN notes reviewed Mode of arrival: ambulatory Limitations: no limitations - History of Present Illness Initial comments: This is a 54-year-old female who presents emergency department with past medical history of bipolar for which she takes lithium. Patient had a lithium level taken 2 days ago and it was normal and patient comes in today because she's having difficulty sleeping and she is manic and unable to assist sleep because of her nicki. Patient states she's here to discuss what she can take this with him to fall sleep and want to talk about resolving her manic state patient has no physical complaints today that are new. Patient states she has no recent fever chills she has no chest pain or abdominal pain. - Related Data Home Medications Medication Instructions Recorded Confirmed Acetaminophen [Tylenol Extra 2,000 mg PO DAILY PRN 08/24/19 08/26/19 Strength] [place] Carbonate [[place] 900 mg PO HS 08/24/19 08/26/19 Carbonate ER] Ramelteon [Rozerem] 8 mg PO HS 08/24/19 08/26/19 traZODone HCL 100 - 200 mg PO HS 08/24/19 08/26/19 Allergies Allergy/AdvReac Type Severity Reaction Status Date / Time amoxicillin [From Augmentin] Allergy Rash/Hives Verified 08/26/19 10:00 clavulanic acid Allergy Rash/Hives Verified 08/26/19 10:00 [From Augmentin] erythromycin base Allergy Unknown Verified 08/26/19 10:00 moxifloxacin [From Avelox] Allergy Rash/Hives Verified 08/26/19 10:00 Sulfa (Sulfonamide Allergy Rash/Hives Verified 08/26/19 10:00 Antibiotics) doxycycline AdvReac RESPIRATORY Verified 08/26/19 10:00 COMPLICATIONS SULPATRIM Allergy Rash/Hives Uncoded 08/26/19 10:00 Review of Systems ROS Statement: Those systems with pertinent positive or pertinent negative responses have been documented in the HPI. ROS Other: All systems not noted in ROS Statement are negative. Past Medical History Past Medical History: GERD/Reflux, GI Bleed, Pneumonia Additional Past Medical History / Comment(s): Insomnia, bronchitis, IBS, gastric ulcers, upper and lower GI bleeds. History of Any Multi-Drug Resistant Organisms: None Reported Past Surgical History: Breast Surgery, Ear Surgery, Orthopedic Surgery, Tonsillectomy Additional Past Surgical History / Comment(s): EGD x2, laparoscopy for R ovarian cystectomy, L ankle tendon sx, bilateral myringotomy/tubes, bilateral breast implants. Past Anesthesia/Blood Transfusion Reactions: Motion Sickness, Postoperative Nausea & Vomiting (PONV) Past Psychological History: Bipolar, Depression Smoking Status: Current every day smoker Past Alcohol Use History: None Reported Past Drug Use History: None Reported - Past Family History Mother Family Medical History: Musculoskeletal Disorder Additional Family Medical History / Comment(s): Pt states mother has mental health problems and is a sociopath. Father Family Medical History: Cancer Additional Family Medical History / Comment(s): Father from kidney cancer. General Exam - General Exam Comments Initial Comments: GENERAL: Patient is well-developed and well-nourished. Patient is nontoxic and well- hydrated and is in no acute distress. ENT: Neck is soft and supple. No significant lymphadenopathy is noted. Neck has full range of motion without eliciting any pain. EYES: The sclera were anicteric and conjunctiva were pink and moist. Extraocular movements were intact and pupils were equal round and reactive to light. Eyel ids were unremarkable. PULMONARY: Unlabored respirations. Good breath sounds bilaterally. No audible rales rhonchi or wheezing was noted. CARDIOVASCULAR: There is a regular rate and rhythm without any murmurs gallops or rubs. ABDOMEN: Soft and nontender with normal bowel sounds. SKIN: Skin is clear with no lesions or rashes and otherwise unremarkable. NEUROLOGIC: Patient is alert and oriented x3. Cranial nerves II through XII are grossly intact. Motor and sensory are also intact. Normal speech, volume and content. Symmetrical smile. MUSCULOSKELETAL: Normal extremities with adequate strength and full range of motion. No lower extremity swelling or edema. No calf tenderness. LYMPHATICS: No significant lymphadenopathy is noted PSYCHIATRIC: Normal psychiatric evaluation. Patient states she's having difficulty sleeping. Patient's speech is not hyperverbal and she is not speaking rapidly and is very calm during the interview. Limitations: no limitations Course Vital Signs 08/26/19 09:52 Temperature 98.2 F Pulse Rate 65 Respiratory 18 Rate Blood Pressure 142/70 O2 Sat by Pulse 99 Oximetry Disposition Clinical Impression: Bipolar disorder Disposition: Left Against Medical Advice Referrals: Arnaud Hernandez MD [Primary Care Provider] - 1-2 days Time of Disposition: 10:24
== END 2019-08-26 10:25 | disposition left against medical advice (07) ==
LOC: EC 09:51
DX: F31.9 Bipolar disorder, unspecified (principal); G47.00 Insomnia, unspecified; F17.200 Nicotine dependence, unspecified, uncomplicated; Z88.0 Allergy status to penicillin; Z88.1 Allergy status to other antibiotic agents; Z88.2 Allergy status to sulfonamides; Z79.899 Other long term (current) drug therapy; Z81.8 Family history of other mental and behavioral disorders; Z53.20 Procedure and treatment not carried out because of patient's decision for unspecified reasons
CPT/HCPCS: 99283

== ENCOUNTER → 2019-09-05 | Outpatient (CLI) | payer BC, OTHER ==
[2019-09-05 16:31] LABS: Basophils % (A) 0 %; Eosinophils # (A) 0.2 k/uL (0-0.7); Eosinophils % (A) 2 %; HCT 43.3 % (34.0-46.0); HGB 13.3 gm/dL (11.4-16.0); Lymphocytes % (A) 29 %; MCH 33.3 pg (25.0-35.0); MCHC 30.8 g/dL (31.0-37.0); MCV 108.3 fL (80.0-100.0); Macrocytosis Moderate; Mean Platelet Volume 6.4; Monocytes # (A) 0.4 k/uL (0-1.0); Monocytes % (A) 4 %; Neutrophils # (A) 6.4 k/uL (1.3-7.7); Neutrophils % (A) 63 %; Platelet Count 369 k/uL (150-450); RBC 3.99 m/uL (3.80-5.40); RDW 11.7 % (11.5-15.5); WBC 10.3 k/uL (3.8-10.6)
[2019-09-06 07:51] LABS: Vitamin D 25 Hydroxy 14.8 ng/mL (30.0-100.0)
[2019-09-06 07:52] LABS: T4, Free (Free Thyroxine) 1.1 ng/dL (0.80-1.80)
[2019-09-06 07:53] LABS: African American GFR (CKD) 84.6 (60.0-200.0); Albumin 4.9 g/dL (3.80-4.90); Albumin/Globulin Ratio 2.72 (1.60-3.17); Anion Gap 9.8 mmol/L (4.00-12.00); BUN/Creat Ratio 8.89 Ratio (12.00-20.00); Calcium 10.6 mg/dL (8.7-10.3); Carbon Dioxide 23.2 mmol/L (21.6-31.8); Globulin 1.8 g/dL (1.6-3.3); Lithium 0.7 mmol/L (0.5-1.2); Total Bilirubin 0.2 mg/dL (0.3-1.2); Total Protein 6.7 g/dL (6.2-8.2)
[2019-09-06 07:54] LABS: Hemoglobin A1C 4.9 % (4.0-6.0)
== END | disposition home or self-care (01) ==
LOC: LABWHC1 15:15
PROVIDERS: ATTEND Nurse Practitioner Psychiatric/Mental Health
DX: F31.12 Bipolar disorder, current episode manic without psychotic features, moderate (principal)
CPT/HCPCS: 36415; 80053; 80178; 82306; 83036; 84439; 84443; 84479; 85025

== ENCOUNTER → 2020-05-21 | Outpatient (CLI) | payer BC, OTHER ==
[2020-05-21 14:52] LABS: Basophils # (A) 0.1 k/uL (0-0.2); Basophils % (A) 1 %; Eosinophils # (A) 0.3 k/uL (0-0.7); Eosinophils % (A) 3 %; HCT 41.5 % (34.0-46.0); HGB 13.1 gm/dL (11.4-16.0); Lymphocytes # (A) 2.9 k/uL (1.0-4.8); Lymphocytes % (A) 28 %; MCH 32.4 pg (25.0-35.0); MCHC 31.6 g/dL (31.0-37.0); MCV 102.6 fL (80.0-100.0); Mean Platelet Volume 7.1; Monocytes # (A) 0.5 k/uL (0-1.0); Monocytes % (A) 5 %; Neutrophils # (A) 6.2 k/uL (1.3-7.7); Neutrophils % (A) 61 %; Platelet Count 324 k/uL (150-450); RBC 4.04 m/uL (3.80-5.40); RDW 11.9 % (11.5-15.5); WBC 10.2 k/uL (3.8-10.6)
[2020-05-21 15:01] LABS: ALT 16 U/L (4-34); AST 25 U/L (14-36); African American GFR (CKD) >90 (>60 ml/min/1.73 sqM); Albumin 4.4 g/dL (3.5-5.0); Albumin/Globulin Ratio 1.6; Alkaline Phosphatase 69 U/L (38-126); Anion Gap 9 mmol/L; Bilirubin,Unconjugated 0.3 mg/dL (0.0-1.1); Blood Urea Nitrogen 17 mg/dL (7-17); Carbon Dioxide 23 mmol/L (22-30); Chloride 105 mmol/L (98-107); Globulin 2.8 g/dL; Glucose 126 mg/dL (74-99); Lithium 0.6 mmol/L; Non-African American GFR(CKD) 84 (>60 ml/min/1.73 sqM); Sodium 137 mmol/L (137-145); Total Bilirubin 0.2 mg/dL (0.2-1.3); Total Protein 7.2 g/dL (6.3-8.2)
[2020-05-21 15:12] LABS: Cholesterol 194 mg/dL (<200); HDL Cholesterol 36 mg/dL (40-60); Triglycerides 470 mg/dL (<150)
[2020-05-21 15:18] LABS: T4, Free (Free Thyroxine) 0.89 ng/dL (0.78-2.19)
[2020-05-22 01:42] LABS: Hemoglobin A1C 5.5 % (4.0-6.0)
== END | disposition home or self-care (01) ==
LOC: LABWHC1 13:01
PROVIDERS: ATTEND Clinical Nurse Specialist Psychiatric/Mental Health
DX: F31.12 Bipolar disorder, current episode manic without psychotic features, moderate (principal)
CPT/HCPCS: 36415; 80053; 80061; 80178; 82248; 82306; 83036; 83721; 84439; 84443; 85025

== ENCOUNTER → 2020-08-14 | Outpatient (CLI) | payer BC, OTHER ==
--- NOTE | 2020-08-15 16:32 | MR ---
EXAMINATION TYPE: MR knee RT wo con DATE OF EXAM: 08/14/2020 COMPARISON: None HISTORY: R knee pain CONTRAST: Performed utilizing 0 mL intravenous Gadavist gadolinium contrast. Technique: Multiplanar, multiecho imaging on a 3.0 Rema magnet is performed through the knee. FINDINGS: Anterior and posterior cruciate ligaments are intact. Medial and lateral collateral ligaments are intact. Distal quadriceps tendon and patellar tendons are normal. Anterior horn of the medial meniscus is normal . Posterior horn of the medial meniscus is normal. Anterior horn of lateral meniscus is normal. Posterior horn of the lateral meniscus is normal. Medial compartment joint space is normal. Lateral compartment joint space is normal. The patellofe moral joint space is normal. Articular cartilage is normal. There is a small joint effusion present. A 0.8 cm popliteal cyst may be present. Signal within the osseous structures is normal. IMPRESSIONS: 1. Small joint effusion. 2. Small popliteal cyst. 3.
== END | disposition home or self-care (01) ==
LOC: RADMRIMAIN 13:30
PROVIDERS: ATTEND Orthopaedic Surgery
DX: M71.21 Synovial cyst of popliteal space [Baker], right knee (principal); M25.461 Effusion, right knee

== ENCOUNTER → 2020-12-12 | Outpatient (CLI) | payer BC, OTHER ==
[2020-12-12 14:53] LABS: Basophils # (A) 0.1 k/uL (0-0.2); Basophils % (A) 1 %; Eosinophils # (A) 0.3 k/uL (0-0.7); Eosinophils % (A) 3 %; HCT 43.6 % (34.0-46.0); HGB 14.3 gm/dL (11.4-16.0); Lymphocytes # (A) 2.8 k/uL (1.0-4.8); Lymphocytes % (A) 34 %; MCH 33.2 pg (25.0-35.0); MCHC 32.9 g/dL (31.0-37.0); MCV 101.1 fL (80.0-100.0); Mean Platelet Volume 6.8; Monocytes # (A) 0.4 k/uL (0-1.0); Monocytes % (A) 5 %; Neutrophils # (A) 4.6 k/uL (1.3-7.7); Neutrophils % (A) 55 %; Platelet Count 316 k/uL (150-450); RBC 4.31 m/uL (3.80-5.40); RDW 11.8 % (11.5-15.5); WBC 8.3 k/uL (3.8-10.6)
[2020-12-12 15:00] LABS: Potassium 4.3 mmol/L (3.5-5.1)
== END | disposition home or self-care (01) ==
LOC: LABPAT 13:22
PROVIDERS: ATTEND Orthopaedic Surgery
DX: M23.91 Unspecified internal derangement of right knee (principal)
CPT/HCPCS: 36415; 80051; 85025; 93005

== ENCOUNTER 2020-12-19 10:55 | Day surgery (SDC) | payer BC, OTHER ==
[2020-12-17 11:10] VITALS: BMI 30.9
--- NOTE | 2020-12-18 20:31 | HP ---
HISTORY AND PHYSICAL DATE OF SURGERY: 12/19/2020 Farhana Agudelo is a 55-year-old patient seen with progressive right knee pain. We discussed options for treatment. She elected to proceed with arthroscopy. Consent was obtained. PAST MEDICAL HISTORY: Noncontributory. PAST SURGICAL HISTORY: Ankle surgery. DAILY MEDICATIONS: [place]. ALLERGIES: ATIVAN, DILAUDID, OXYCODONE. SOCIAL HISTORY: She currently smokes cigarettes. PHYSICAL EVALUATION OF THE RIGHT KNEE: Her range of motion is 0 to 130. Tenderness, medial joint line. Positive medial Vega's. Ligaments stable. Hip rotation without pain. Distal neurovascular exam is intact. RADIOGRAPHS: Radiographs of the right knee revealed mild to moderate osteoarthritic changes. MRI of the right knee revealed a joint effusion and Bazan's cyst. IMPRESSION: 1. Internal derangement of right knee with osteochondral tear versus meniscal tear. 2. Right knee osteoarthritis. PLAN: Right knee arthroscopy with chondroplasty versus partial meniscectomy and debridement. MMODL / IJN: [id number] /
[2020-12-19] MEDS ORDERED: ONDANSETRON 4 MG/2 ML VIAL ONE (11:27)
[2020-12-19] MEDS ORDERED: LACTATED RINGERS 1,000 ML IV ONE (11:35)
[2020-12-19] MEDS ORDERED: SCOPOLAMINE 1.5MG/72HR PATCH TRANSDERM ONE (11:55)
[2020-12-19] MEDS ORDERED: DEXAMETHASONE SOD PHOSPHATE 4 MG/ML 1 ML VIAL IV ONE (11:55)
[2020-12-19] MEDS ORDERED: PHENYLEPHRINE 10 MG/ML VIAL ONE (12:58)
[2020-12-19] MEDS ORDERED: ROCURONIUM 10 MG/ML (10 ML VIAL) IV ONE (12:58)
[2020-12-19] MEDS ORDERED: LIDOCAINE 1% INJ 10MG/ML (20 ML MDV) ONE (12:58)
[2020-12-19] MEDS ORDERED: fentaNYL (PF) 50 MCG/ML 2 ML AMP ONE (12:58)
[2020-12-19] MEDS ORDERED: METOPROLOL TARTRATE 5 MG/5 ML VIAL IVP ONE (12:58)
[2020-12-19] MEDS ORDERED: SUCCINYLCHOLINE CHLORIDE 100 MG/5 ML SYR IV ONE (12:58)
[2020-12-19] MEDS ORDERED: PROPOFOL 10 MG/ML 20 ML VIAL IV ONE (12:58)
[2020-12-19] MEDS ORDERED: BUPIVACAINE (PF) 0.25% 30 ML VIAL SQ ONE ×2 (13:09→13:33)
--- NOTE | 2020-12-19 13:56 | P.OP ---
Date of Procedure: 12/19/20 Preoperative Diagnosis: Internal derangement right knee Postoperative Diagnosis: 1. Tear lateral meniscus right knee 2. Grade 1/2 chondromalacia lateral femoral condyle right knee 3. Grade 3 chondromalacia patella right knee 4. Reactive synovitis medial, lateral and suprapatellar compartments right knee Procedure(s) Performed: 1. Arthroscopic partial lateral meniscectomy right knee 2. Arthroscopic chondroplasty lateral femoral condyle right knee 3. Arthroscopic chondroplasty patella right knee 4. Arthroscopic partial synovectomy medial, lateral and suprapatellar compartments right knee Anesthesia: JARRETTA, local Surgeon: Ritchie Calixto Estimated Blood Loss (ml): 8 Pathology: none sent Condition: stable Disposition: PACU Indications for Procedure: 55-year-old patient seen with progressive right knee pain. After treatment options were discussed she elected to proceed with arthroscopy. Operative Findings: See description of procedure Description of Procedure: Patient was taken to the operative suite. Patient underwent a general anesthetic by the department of anesthesia. Patient was given preoperative antibiotics. The right lower extremity was placed in a well-padded arthroscopic leg sen. The right leg was prepped and draped in the normal sterile orthopedic fashion. A lateral parapatellar and suprapatellar incision was made. Trochars were inserted. Arthroscopy was initiated. Suprapatellar pouch revealed diffuse thick reactive synovitis. The patellofemoral joint appeared articulate congruently. There was grade 3 chondromalacia with some diffuse osteochondral tears present. The scope was guided into the medial gutter. No loose bodies or plica were identified. The scope was then guided into the medial compartment. A medial parapatellar incision was made. Trocar inserted followed by probe. The medial meniscus was probed and was found to be stable. There was some early grade 1 chondromalacia diffusely with no tears present. There was thick reactive synovitis anteriorly. I performed a partial synovectomy decompressing the reactive synovitis. The shaver was removed. There was good decompression of the synovitis. Scope and probe were then guided into the intercondylar notch. Cruciates were identified, probed and found to be stable. The scope and probe were then guided into lateral compartment. There was a radial tear mid body lateral meniscus. There were gr rivka 1/2 chondromalacia changes lateral femoral condyle. There was thick reactive synovitis anteriorly. I performed a partial lateral meniscectomy. I performed a chondroplasty lateral femoral condyle. I performed a partial synovectomy. Shaver was removed. The residual meniscus was stable. The residual osteochondral surface was stable. There was good decompression of the synovitis. The scope was in guided back into the suprapatellar compartment. I introduced a motorized shaver into the suprapatellar compartment. I performed a chondroplasty of the patella getting down to stable osteochondral tissue. I performed a partial synovectomy decompressing the reactive synovitis. Shaver was removed. I now took more look on the entire knee, no residual debris. Instruments were now removed from the joint. The joint was infiltrated with .25% Marcaine. Steri-Strips were applied to the portal sites. Sterile dressings were applied. The patient was placed into a JOSHUA hose. No tourniquet was utilized. The patient was awakened, transferred to a bed and taken to recovery stable satisfactory condition.
[2020-12-19] MEDS: fentaNYL (PF) 50 MCG/ML 2 ML AMP IVP ONE ×2 (14:34→14:41)
[2020-12-19 14:49] VITALS: RESP 16
[2020-12-19] MEDS ORDERED: traMADol 50 MG TAB ONE (15:01)
[2020-12-19 15:09] VITALS: TEMP 983
[2020-12-19 15:51] VITALS: BP 143/81; PULSE 77
== END 2020-12-19 16:07 | disposition home or self-care (01) ==
LOC: OR 10:55
PROVIDERS: ATTEND Orthopaedic Surgery
DX: M23.200 Derangement of unspecified lateral meniscus due to old tear or injury, right knee (principal); M22.41 Chondromalacia patellae, right knee; M65.861 Other synovitis and tenosynovitis, right lower leg; M17.11 Unilateral primary osteoarthritis, right knee; F17.210 Nicotine dependence, cigarettes, uncomplicated; Z98.890 Other specified postprocedural states; F31.9 Bipolar disorder, unspecified; K21.9 Gastro-esophageal reflux disease without esophagitis; K27.9 Peptic ulcer, site unspecified, unspecified as acute or chronic, without hemorrhage or perforation; Z79.899 Other long term (current) drug therapy; Z88.1 Allergy status to other antibiotic agents; Z88.5 Allergy status to narcotic agent; Z88.8 Allergy status to other drugs, medicaments and biological substances; Z88.0 Allergy status to penicillin
CPT/HCPCS: 29881; J1100; J2370; J0690; J2405; J2001; J3010; J0330; J2704

== ENCOUNTER → 2021-03-11 | Outpatient (CLI) | payer BC, OTHER ==
--- NOTE | 2021-03-11 15:15 | MR ---
EXAMINATION TYPE: MR knee LT wo con DATE OF EXAM: 03/11/2021 COMPARISON: None. HISTORY: Lt knee pain and swelling for years per patient. TECHNIQUE: Multiplanar, multisequence imaging of the left knee is performed without IV contrast. FINDINGS: MEDIAL MENISCUS: Posterior horn shows vague increased signal inferiorly extending to articular surfac e towards the central body sagittal image 23 suspicious for full-thickness tear. LATERAL MENISCUS: Anterior and posterior horns are intact without tear. CRUCIATE LIGAMENTS: The anterior and posterior cruciate ligaments are intact and unremarkable. COLLATERAL LIGAMENTS: The medial collateral ligament and lateral collateral ligament complex are inta ct and unremarkable. EXTENSOR MECHANISM: Visualized quadriceps and patellar tendons are intact. EFFUSION: No significant suprapatellar joint effusion. POPLITEAL CYST: Moderate size popliteal/jaquez cyst measures 5.5 cm long axis sagittal image 23 has a few thin septa. TRICOMPARTMENT SPACES: And mild to moderate tricompartment joint space loss with mild spurring CARTILAGE: Mild thinning of articular cartilage in the medial tibiofemoral compartment. BONE MARROW SIGNAL: No focal abnormal marrow signal is appreciated. OTHER: No additional significant abnormality is appreciated. IMPRESSION: 1. Mild to moderate tricompartment degenerative changes as detailed above. 2. Moderate-sized popliteal cyst. 3. At least intrasubstance but suspected full-thickness tear posterior horn medial meniscus.
== END | disposition home or self-care (01) ==
LOC: RADMRIMAIN 12:59
PROVIDERS: ATTEND Orthopaedic Surgery
DX: M17.12 Unilateral primary osteoarthritis, left knee (principal); M71.22 Synovial cyst of popliteal space [Baker], left knee

== ENCOUNTER → 2022-03-14 | Outpatient (CLI) | payer OTHER | END | disposition home or self-care (01) | LOC: LABWHC1 09:24 | PROVIDERS: ATTEND Physician Assistant | DX: F31.12 Bipolar disorder, current episode manic without psychotic features, moderate (principal) | CPT/HCPCS: 36415; 80178 ==

== ENCOUNTER → 2023-02-09 | Outpatient (CLI) | payer OTHER | END | disposition home or self-care (01) | LOC: LABWHC1 13:17 | PROVIDERS: ATTEND Physician Assistant | DX: F31.12 Bipolar disorder, current episode manic without psychotic features, moderate (principal) | CPT/HCPCS: 36415; 80178 ==

== ENCOUNTER → 2023-05-10 | Outpatient (CLI) | payer OTHER | END | disposition home or self-care (01) | LOC: LABWHC1 11:46 | PROVIDERS: ATTEND Physician Assistant | DX: F31.12 Bipolar disorder, current episode manic without psychotic features, moderate (principal) | CPT/HCPCS: 36415; 80178 ==

== ENCOUNTER → 2023-06-29 | Outpatient (CLI) | payer OTHER ==
[2023-06-29 15:32] LABS: Basophils # (A) 0.02 X 10*3/uL (0.00-0.10); Basophils % (A) 0.3 %; Eosinophils # (A) 0.21 X 10*3/uL (0.04-0.35); Eosinophils % (A) 2.7 %; HCT 40.8 % (37.2-46.3); HGB 13.2 d/dL (12.0-15.0); Lymphocytes # (A) 2.36 X 10*3/uL (0.90-5.00); Lymphocytes % (A) 29.9 %; MCH 33.4 pg (27.0-32.0); MCHC 32.4 d/dL (32.0-37.0); MCV 103.3 FL (80.0-97.0); Mean Platelet Volume 10.6 FL (9.5-12.2); Monocytes # (A) 0.42 X 10*3/uL (0.20-1.00); Monocytes % (A) 5.3 %; NRBC Per 100 WBC 0 X 10*3/uL (0.00-0.01); Neutrophils # (A) 4.87 X 10*3/uL (1.80-7.70); Neutrophils % (A) 61.5 %; Platelet Count 298 X 10*3/uL (140-440); RBC 3.95 X 10*6/uL (4.10-5.20); RDW 11.8 % (11.5-14.5)
[2023-06-29 15:52] LABS: ALT 53 U/L (8-44); AST 34 U/L (13-35); Albumin 5.1 d/dL (3.8-4.9); Albumin/Globulin Ratio 2.12 Ratio (1.60-3.17); Alkaline Phosphatase 74 U/L (41-126); Blood Urea Nitrogen 14.6 mg/dL (9.0-27.0); Calcium 10.4 mg/dL (8.7-10.3); Carbon Dioxide 21.1 mmol/L (21.6-31.8); Chloride 105 mmol/L (96-109); Globulin 2.4 d/dL (1.6-3.3); Glucose 94 mg/dL (70-110); Potassium 4.5 mmol/L (3.5-5.5); Sodium 140 mmol/L (135-145); T4, Free (Free Thyroxine) 1.45 ng/dL (0.80-1.80); Total Bilirubin 0.4 mg/dL (0.3-1.2); Total Protein 7.5 d/dL (6.2-8.2)
[2023-06-29 21:55] LABS: Urine Alcohol Negative (Negative)
[2023-06-29 22:11] LABS: Urine Barbiturate Negative (Negative); Urine Cocaine Negative (Negative); Urine Methadone Negative (Negative); Urine Opiates Negative (Negative); Urine Phencyclidine Negative (Negative)
== END | disposition home or self-care (01) ==
LOC: LABWHC1 11:54
PROVIDERS: ATTEND Physician Assistant
DX: F31.12 Bipolar disorder, current episode manic without psychotic features, moderate (principal)
CPT/HCPCS: 36415; 80053; 80178; 80306; 84439; 84443; 85025; 87086

== ENCOUNTER → 2023-10-18 | Outpatient (CLI) | payer OTHER ==
[2023-10-18 16:42] LABS: Basophils # (A) 0.03 X 10*3/uL (0.00-0.10); Basophils % (A) 0.4 %; Eosinophils # (A) 0.31 X 10*3/uL (0.04-0.35); Eosinophils % (A) 4.5 %; HCT 42.1 % (37.2-46.3); HGB 13.8 g/dL (12.0-15.0); Lymphocytes # (A) 2.63 X 10*3/uL (0.90-5.00); Lymphocytes % (A) 37.8 %; MCH 33.2 pg (27.0-32.0); MCHC 32.8 g/dL (32.0-37.0); MCV 101.2 FL (80.0-97.0); Mean Platelet Volume 10.9 FL (9.5-12.2); Monocytes # (A) 0.42 X 10*3/uL (0.20-1.00); NRBC Per 100 WBC 0 X 10*3/uL (0.00-0.01); Neutrophils # (A) 3.55 X 10*3/uL (1.80-7.70); Platelet Count 301 X 10*3/uL (140-440); RBC 4.16 X 10*6/uL (4.10-5.20); RDW 11.9 % (11.5-14.5); WBC 6.96 X 10*3/uL (4.50-10.00)
[2023-10-18 17:29] LABS: ALT 19 U/L (8-44); AST 19 U/L (13-35); Albumin 4.9 g/dL (3.8-4.9); Albumin/Globulin Ratio 2.33 Ratio (1.60-3.17); Alkaline Phosphatase 60 U/L (41-126); BUN/Creat Ratio 19.11 Ratio (12.00-20.00); Blood Urea Nitrogen 17.2 mg/dL (9.0-27.0); Calcium 10.6 mg/dL (8.7-10.3); Chloride 105 mmol/L (96-109); Globulin 2.1 g/dL (1.6-3.3); Glucose 89 mg/dL (70-110); Potassium 4.8 mmol/L (3.5-5.5); Sodium 140 mmol/L (135-145); Total Bilirubin 0.3 mg/dL (0.3-1.2)
== END | disposition home or self-care (01) ==
LOC: LABWHC1 11:10
PROVIDERS: ATTEND Psychiatry & Neurology Psychiatry
DX: F31.12 Bipolar disorder, current episode manic without psychotic features, moderate (principal)
CPT/HCPCS: 36415; 80053; 80178; 85025